=== PATIENT | female | born 1970 | race Hispanic/Latino ===

== ENCOUNTER 2016-06-26 02:15 | Emergency (ER) | payer MEDICAID ==
[2016-06-26 02:26] VITALS: BP 149/97
[2016-06-26 03:26] LABS: Alanine Aminotransferase 12 units/L (7-56); Albumin 3.9 g/dL (3.9-5); Albumin/Globulin Ratio 1.6 %; Alkaline Phosphatase 64 units/L (35-129); BUN/Creatinine Ratio 31.66; Bilirubin,Total 0.2 mg/dL (0.1-1.2); Blood Urea Nitrogen 19 mg/dL (7-17); Carbon Dioxide 24 mmol/L (22-30); Glucose 89 mg/dL (65-100); Lipase 36 units/L (13-60); Total Protein 6.4 g/dL (6.3-8.2)
[2016-06-26 03:27] LABS: Anion Gap 19 mmol/L; Chloride 97.9 mmol/L (98-107); Potassium 3.9 mmol/L (3.6-5.0); Sodium 137 mmol/L (137-145)
[2016-06-26 03:35] LABS: Basophils % (Auto) 0.8 % (0.0-1.8); Eosinophils % (Auto) 3.4 % (0.0-4.3); Hematocrit 37.1 % (30.3-42.9); Hemoglobin 11.9 gm/dl (10.1-14.3); Mean Corpuscular HGB Conc 32 % (30-34); Mean Corpuscular Hemoglobin 28 pg (28-32); Mean Corpuscular Volume 87 fl (79-97); Platelet Count 266 K/mm3 (140-440); Red Blood Count 4.26 M/mm3 (3.65-5.03); Red Cell Distribution Width 14.9 % (13.2-15.2); White Blood Count 7.2 K/mm3 (4.5-11.0)
[2016-06-26 05:05] LABS: Bilirubin,Urine NEG (Negative); Blood,Urine MOD (Negative); Ketones,Urine TR mg/dL (Negative); Leukocyte Esterase,Urine SM (Negative); Mucus,Urine FEW /HPF; Nitrite,Urine NEG (Negative); Protein,Urine <15 mg/dL mg/dL (Negative); Urobilinogen,Urine < 2.0 mg/dL (<2.0)
--- NOTE | 2016-06-28 18:25 | ED Elopement Review ---
ED Pt Elopement review - Results review Lab results: Laboratory Tests 06/26/16 06/26/16 06/26/16 02:54 02:54 Unknown WBC 7.2 RBC 4.26 Hgb 11.9 Hct 37.1 MCV 87 MCH 28 MCHC 32 RDW 14.9 Plt Count 266 Lymph % (Auto) 36.1 H [place] % (Auto) 9.3 H Eos % (Auto) 3.4 Baso % (Auto) 0.8 Lymph # 2.6 [place] # 0.7 Eos # 0.2 Baso # 0.1 Seg Neutrophils % 50.4 Seg Neutrophils # 3.6 Sodium 137 Potassium 3.9 Chloride 97.9 L Carbon Dioxide 24 Anion Gap 19 BUN 19 H Creatinine 0.6 L Estimated GFR > 60 BUN/Creatinine Ratio 31.66 Glucose 89 Calcium 9.0 Total Bilirubin 0.2 AST 17 ALT 12 Alkaline Phosphatase 64 Total Protein 6.4 Albumin 3.9 Albumin/Globulin Ratio 1.6 Lipase 36 Urine Color Yellow Urine Turbidity Clear Urine pH 6.0 Ur Specific [place] 1.024 Urine Protein <15 mg/dl Urine Glucose (UA) Neg Urine Ketones Tr Urine Blood Mod Urine Nitrite Neg Ur Reducing Substances Not Reportable Urine Bilirubin Neg Urine Ictotest Not Reportable Urine Urobilinogen < 2.0 Ur Leukocyte Esterase Sm Urine WBC (Auto) 3.0 Urine RBC (Auto) 3.0 U Epithel Cells (Auto) 2.0 Urine Mucus Few Urine HCG, Qual Negative - Call Back decision Pt Call Back Decision: Pt to F/U with PMD
== END 2016-06-26 02:55 | disposition left against medical advice (07) ==
LOC: ED 02:15
DX: R10.9 Unspecified abdominal pain (principal); Z53.21 Procedure and treatment not carried out due to patient leaving prior to being seen by health care provider
CPT/HCPCS: 36415; 80053; 81001; 81025; 83690; 85025

== ENCOUNTER 2016-07-16 07:53 | Emergency (ER) | payer MEDICAID ==
[2016-07-16 08:58] LABS: Basophils % (Auto) 0.7 % (0.0-1.8); Eosinophils % (Auto) 1.4 % (0.0-4.3); Hematocrit 37.3 % (30.3-42.9); Hemoglobin 12.1 gm/dl (10.1-14.3); Mean Corpuscular HGB Conc 32 % (30-34); Mean Corpuscular Hemoglobin 28 pg (28-32); Mean Corpuscular Volume 86 fl (79-97); Platelet Count 258 K/mm3 (140-440); Red Blood Count 4.36 M/mm3 (3.65-5.03); Red Cell Distribution Width 14.8 % (13.2-15.2); White Blood Count 6.5 K/mm3 (4.5-11.0)
[2016-07-16 09:05] LABS: Alanine Aminotransferase 11 units/L (7-56); Albumin/Globulin Ratio 1.6 %; Alkaline Phosphatase 59 units/L (35-129); Anion Gap 18 mmol/L; Bilirubin,Total 0.3 mg/dL (0.1-1.2); Blood Urea Nitrogen 11 mg/dL (7-17); Calcium 9.2 mg/dL (8.4-10.2); Carbon Dioxide 24 mmol/L (22-30); Chloride 101.4 mmol/L (98-107); Glucose 94 mg/dL (65-100); Lipase 23 units/L (13-60); Sodium 139 mmol/L (137-145); Total Protein 6.5 g/dL (6.3-8.2)
[2016-07-16] MEDS ORDERED: NACL 0.9% 1000 ML 1,000 ML IV ONE (13:57)
[2016-07-16] MEDS ORDERED: ZOFRAN IV ONE (14:38)
[2016-07-16] MEDS ORDERED: MORPHINE IV ONE (14:38)
[2016-07-16 14:40] LABS: Bilirubin,Urine NEG (Negative); Blood,Urine NEG (Negative); Ketones,Urine 20 mg/dL (Negative); Leukocyte Esterase,Urine TR (Negative); Nitrite,Urine NEG (Negative); Protein,Urine <15 mg/dL mg/dL (Negative); RBC,Urine < 1.0 /HPF (0.0-6.0); Urobilinogen,Urine < 2.0 mg/dL (<2.0); WBC,Urine < 1.0 /HPF (0.0-6.0)
--- NOTE | 2016-07-16 14:43 | Emergency Department Report ---
ED Abdominal Pain HPI - General Chief Complaint: Abdominal Pain Stated Complaint: SEVERE ABD PAIN Time Seen by Provider: 07/16/16 13:55 Source: patient Mode of arrival: Wheelchair Limitations: No Limitations - History of Present Illness Initial Comments: 46-year-old female presents to the emergency department complaining of abdominal pain. Patient reports onset of pain at approximately 10:30 last night. Patient states the pain was initially intermittent abdomen, but has migrated to her right lower quadrant. Patient describes the sensation of a knife being stabbed into her abdomen. The pain does not radiate. Pain has progressively gotten worse since onset. She reports associated nausea, but has not vomited. Patient states she had gastric bypass surgery 03/18/2016. She states she called her surgeon and was told to come emergency department. There are no further complaints. MD Complaint: abdominal pain -: Sudden, During the night Time: 22:30 Location: periumbilical Radiation: none Migration to: RLQ Severity: severe Severity scale (0 -10): 10 Quality: other (stabbing) Consistency: constant Improves With: nothing Worsens With: nothing Associated Symptoms: nausea - Related Data Home Medications Medication Instructions Recorded Confirmed Last Taken Ascorbic Acid [Vitamin C] 1,000 mg PO 02/22/16 Unknown Biotin 10,000 mcg PO DAILY 02/22/16 02/22/16 03/17/16 Calcium Citrate/Vitamin D3 [Gnp 1 each PO DAILY 02/22/16 02/22/16 03/17/16 Calcium Citrate-Vit D3 Tab] Cyclobenzaprine [Flexeril] 10 mg PO TID PRN 02/22/16 03/18/16 03/17/16 Gabapentin [Gabapentin] 600 mg PO DAILY 02/22/16 03/18/16 1 Week Ago Magnesium Oxide/Mag Aa Chelate 600 mg PO DAILY 02/22/16 02/22/16 03/17/16 [Magnesium 300 mg Capsule] Plummer-3 Fatty Acids/Fish Oil [Cvs 1 each PO DAILY 02/22/16 02/22/16 03/17/16 Fish Oil 1,200 mg Softgel] Vit No.112/Folic Acid 1 mg PO DAILY 02/22/16 02/22/16 03/17/16 [Prenate Chewable Tablet] Vitamin B Complex & Vit C No.4 150 mg PO DAILY 02/22/16 02/22/16 03/17/16 [Super B Complex] buPROPion XL [Wellbutrin Xl] 150 mg PO BID 02/22/16 02/22/16 03/18/16 07:30 Previous Rx's Medication Instructions Recorded Last Taken Type Carvedilol [Coreg] 6.25 mg PO BID #60 tablet 04/07/15 03/18/16 07:30 Rx Lisinopril [Zestril TAB] 10 mg PO QDAY #30 tablet 04/07/15 03/18/16 07:30 Rx Simvastatin [Zocor TAB] 20 mg PO QHS #30 tablet 04/07/15 03/17/16 Rx oxyCODONE /ACETAMINOPHEN [Percocet 1 - 2 tab PO Q6H PRN #30 tablet 04/07/15 Rx 5/325 mg] HYDROcodone/APAP 5-325 [Estelline 1 each PO Q6HR PRN #20 tablet 07/16/16 Unknown Rx 5/325] traMADol [Ultram] 50 mg PO Q6HR PRN #20 tablet 07/16/16 Unknown Rx Allergies Allergy/AdvReac Type Severity Reaction Status Date / Time aspirin Allergy Bleeding Verified 04/05/15 10:32 ED Review of Systems ROS: Stated complaint: SEVERE ABD PAIN Other details as noted in HPI Comment: All other systems reviewed and negative Gastrointestinal: abdominal pain, nausea ED Past Medical Hx - Past Medical History Previous Medical History?: Yes Hx Hypertension: Yes (1YR) Hx Diabetes: No Hx GERD: Yes Hx Arthritis: Yes (SPINE AND KNEES) Additional medical history: Suspected sleep apnea;. Spontaneous pneumothorax ( early ) - Surgical History Past Surgical History?: Yes Hx Cholecystectomy: Yes Additional Surgical History: , right knee surgery; rectal abscess / GASTRIC BYPASS - Family History Family history: no significant - Social History Smoking Status: Never Smoker Substance Use Type: None - Medications Home Medications: Home Medications Medication Instructions Recorded Confirmed Last Taken Type Carvedilol [Coreg] 6.25 mg PO BID #60 tablet 04/07/15 02/22/16 03/18/16 07:30 Rx Lisinopril [Zestril TAB] 10 mg PO QDAY #30 tablet 04/07/15 03/18/16 03/18/16 07: 30 Rx Simvastatin [Zocor TAB] 20 mg PO QHS #30 tablet 04/07/15 02/22/16 03/17/16 Rx oxyCODONE /ACETAMINOPHEN [Percocet 1 - 2 tab PO Q6H PRN #30 tablet 04/07/1503/17/16 Rx 5/325 mg] Ascorbic Acid [Vitamin C] 1,000 mg PO 02/22/16 Unknown History Biotin 10,000 mcg PO DAILY 02/22/16 02/22/16 03/17/16 History Calcium Citrate/Vitamin D3 [Gnp 1 each PO DAILY 02/22/16 02/22/16 03/17/16 History Calcium Citrate-Vit D3 Tab] Cyclobenzaprine [Flexeril] 10 mg PO TID PRN 02/22/16 03/18/16 03/17/16 History Gabapentin [Gabapentin] 600 mg PO DAILY 02/22/16 03/18/16 1 Week Ago History Magnesium Oxide/Mag Aa Chelate 600 mg PO DAILY 02/22/16 02/22/16 03/17/16 History [Magnesium 300 mg Capsule] Plummer-3 Fatty Acids/Fish Oil [Cvs 1 each PO DAILY 02/22/16 02/22/16 03/17/16 History Fish Oil 1,200 mg Softgel] Vit No.112/Folic Acid 1 mg PO DAILY 02/22/16 02/22/16 03/17/16 History [Prenate Chewable Tablet] Vitamin B Complex & Vit C No.4 150 mg PO DAILY 02/22/16 02/22/16 03/17/16 History [Super B Complex] buPROPion XL [Wellbutrin Xl] 150 mg PO BID 02/22/16 02/22/16 03/18/16 07:30 History HYDROcodone/APAP 5-325 [[place]ell[place] 1 each PO Q6HR PRN #20 tablet 07/16/16 Unknown Rx 5/325] traMADol [Ultram] 50 mg PO Q6HR PRN #20 tablet 07/16/16 Unknown Rx ED Physical Exam - General Limitations: No Limitations General appearance: alert, in distress (mild distress secondary to pain) - Head Head exam: Present: atraumatic, normocephalic - Eye Eye exam: Present: normal appearance, PERRL, EOMI - ENT ENT exam: Present: normal exam, normal orophraynx, mucous membranes moist - Neck Neck exam: Present: normal inspection, full ROM. Absent: tenderness - Respiratory Respiratory exam: Present: normal lung sounds bilaterally. Absent: respiratory distress - Cardiovascular Cardiovascular Exam: Present: regular rate, normal rhythm, normal heart sounds - GI/Abdominal GI/Abdominal exam: Present: soft, tenderness (moderate right lower quadrant tenderness to palpation), normal bowel sounds. Absent: distended, guarding, rebound - Extremities Exam Extremities exam: Present: normal inspection, full ROM. Absent: tenderness - Back Exam Back exam: Present: normal inspection, full ROM. Absent: tenderness - Neurological Exam Neurological exam: Present: alert, oriented X3. Absent: motor sensory deficit - Skin Skin exam: Present: warm, dry, intact ED Course Vital Signs 07/16/16 07/16/16 07/16/16 08:23 13:34 14:38 Temperature 98.4 F 97.7 F Pulse Rate 83 99 H 101 H Respiratory 20 17 18 Rate Blood Pressure 126/89 133/84 Blood Pressure 140/85 [Left] O2 Sat by Pulse 100 100 99 Oximetry ED Medical Decision Making - Lab Data Result diagrams: 07/16/16 08:33 07/16/16 08:33 - Radiology Data Radiology results: report reviewed, image reviewed interpreted by me: Abdominal films reveal a moderate amount of stool in the right colon with nonspecific bowel gas pattern. There is no evidence of obstruction. CT of abdomen and pelvis revealed a small amount of free fluid in the cul-de- sac and in the right adnexa. The appendix is normal. There are no other acute findings. - Medical Decision Making Lab and imaging results reviewed and discussed with the patient. Patient reports feeling better following IV medication. Patient's symptoms are likely secondary to a ruptured ovarian cyst considering the description of pain and the CT findings. Patient will be discharged home at this time on oral pain medication to follow-up with her primary care physician. - Differential Diagnosis abdominal pain, bowel infection, appendicitis, UTI Critical care attestation.: If time is entered above; I have spent that time in minutes in the direct care of this critically ill patient, excluding procedure time. ED Disposition Clinical Impression: Ruptured ovarian cyst Disposition: DISCHARGED TO HOME OR SELFCARE Is pt being admited?: No Condition: Stable Instructions: Ovarian Cyst (ED) Prescriptions: HYDROcodone/APAP 5-325 [[place]ell[place] 5/325] 1 each PO Q6HR PRN #20 tablet PRN Reason: Pain traMADol [Ultram] 50 mg PO Q6HR PRN #20 tablet PRN Reason: Pain Referrals: PAMELA KULKARNI DO [Primary Care Provider] - 3-5 Days Time of Disposition: 16:15
[2016-07-16] MEDS ORDERED: NACL ONE (15:08)
--- NOTE | 2016-07-16 15:18 | XRay Report ---
Abdominal series with PA chest x-ray. Findings: The bowel gas pattern is unremarkable. No free air is seen on the upright view. There is a moderate volume of stool throughout the colon, especially in the right colon. Minimal small bowel gas is noted. Surgical clips are seen in the right upper quadrant. No mass effect, organomegaly, or significant calcifications are seen. The chest x-ray is normal. Impression: No significant findings.
[2016-07-16] MEDS ORDERED: DILAUDID ONE (15:37)
[2016-07-16] MEDS ORDERED: DILAUDID IV ONE (15:41)
--- NOTE | 2016-07-16 16:02 | Cat Scan Report ---
CT of the abdomen and pelvis with IV contrast. History: Right lower quadrant pain. Findings: There is a sharply circumscribed hypodensity in the anterior aspect of the left lobe of the liver adjacent to the falciform ligament. This measures 2.7 cm in diameter. A subcentimeter rounded hypodensity is seen in the medial aspect of the right lobe of the liver. No additional focal abnormalities are seen. Post gastric bypass changes are noted. The spleen and pancreas are unremarkable. The kidneys are normal. Surgical clips are noted in the right upper quadrant. The appendix is normal. There is a small volume of free fluid in the cul-de-sac. A 1 cm cyst is seen in the left adnexa. Minimal free fluid is seen in the right adnexa. Impression: 1. Free fluid is seen within the cul-de-sac and right adnexa. A 1 cm cyst is seen in the left adnexa. 2. 2 hepatic hypodense lesions are nonspecific but probably benign. 3. Post gastric bypass and postcholecystectomy changes.
[2016-07-16 16:58] VITALS: BP 100/79
== END 2016-07-16 17:00 | disposition home or self-care (01) ==
LOC: ED 07:53
DX: N83.299 Other ovarian cyst, unspecified side (principal); I10 Essential (primary) hypertension; K21.9 Gastro-esophageal reflux disease without esophagitis; M19.90 Unspecified osteoarthritis, unspecified site; Z90.49 Acquired absence of other specified parts of digestive tract
CPT/HCPCS: 36415; 74022; 74177; 80053; 81001; 81025; 83690; 85025; 96361; 96374; 96375; 99284; J1170; J2270; J2405; J7030; Q9967

== ENCOUNTER 2017-03-09 15:02 | Emergency (ER) | payer MEDICAID ==
[2017-03-09 15:10] VITALS: BP 138/80
--- NOTE | 2017-03-09 15:47 | Emergency Department Report ---
Chief Complaint: Abdominal Pain Stated Complaint: R SIDE PAIN Time Seen by Provider: 03/09/17 15:44 - HPI History of Present Illness: This is a 46-year-old female well-nourished well-developed in no acute distress. Patient is here complaining of right lower quadrant pain since this morning. She reports that she has some nausea but no vomiting. Denies any diarrhea. Pain is 10 out of 10 and achy. Worse with movement and palpation. The lower rest. She denies any fever or chills. Denies any urinary burning frequency or urgency. Patient has a history of arthritis, asthma congestive heart failure, GERD, hypertension, possible sleep apnea, spontaneous pneumothorax, gastric bypass. She has her gallbladder removed. - ROS Review of Systems: All systems are negative unless stated in HPI above - Exam Vital Signs: Vital Signs 03/09/17 15:06 Temperature 98.3 F Pulse Rate 119 H Respiratory 17 Rate Blood Pressure 138/80 O2 Sat by Pulse 99 Oximetry Physical Exam: Gen.: This is a 46-year-old female well-nourished well-developed and nontoxic in appearance Abdomen: Tender to palpate the right lower quadrant, positive guarding. Normal bowel sounds. No distention or rigidity. MSE screening note: Focused history and physical exam performed. Due to findings the following was ordered: ED Medical Decision Making - Medical Decision Making MDM: Patient screened by provider in triage area. Appropriate protocol initiated and patient to be seen in main ED by ED Disposition for MSE Condition: Stable Instructions: Abdominal Pain (ED)
[2017-03-09 16:53] LABS: Eosinophils % (Auto) 4.5 % (0.0-4.3); Hematocrit 38.1 % (30.3-42.9); Hemoglobin 12.3 gm/dl (10.1-14.3); Mean Corpuscular HGB Conc 32 % (30-34); Mean Corpuscular Hemoglobin 29 pg (28-32); Mean Corpuscular Volume 89 fl (79-97); Platelet Count 310 K/mm3 (140-440); Red Blood Count 4.26 M/mm3 (3.65-5.03); Red Cell Distribution Width 15.7 % (13.2-15.2); White Blood Count 6.9 K/mm3 (4.5-11.0)
[2017-03-09 16:58] LABS: Bilirubin,Urine NEG (Negative); Blood,Urine MOD (Negative); Ketones,Urine NEG (Negative); Leukocyte Esterase,Urine NEG (Negative); Nitrite,Urine NEG (Negative); Protein,Urine <15 mg/dL mg/dL (Negative); Urobilinogen,Urine < 2.0 mg/dL (<2.0)
[2017-03-09 17:01] LABS: Alanine Aminotransferase 20 units/L (7-56); Albumin 4.1 g/dL (3.9-5); Albumin/Globulin Ratio 1.6 %; Alkaline Phosphatase 43 units/L (35-129); Anion Gap 18 mmol/L; BUN/Creatinine Ratio 32; Bilirubin,Total < 0.20 mg/dL (0.1-1.2); Blood Urea Nitrogen 16 mg/dL (7-17); Calcium 8.9 mg/dL (8.4-10.2); Carbon Dioxide 24 mmol/L (22-30); Chloride 102.1 mmol/L (98-107); Glucose 84 mg/dL (65-100); Lipase 28 units/L (13-60); Potassium 3.9 mmol/L (3.6-5.0); Sodium 140 mmol/L (137-145); Total Protein 6.6 g/dL (6.3-8.2)
== END 2017-03-09 23:30 | disposition left against medical advice (07) ==
LOC: ED 15:02
DX: R10.31 Right lower quadrant pain (principal); Z53.21 Procedure and treatment not carried out due to patient leaving prior to being seen by health care provider
CPT/HCPCS: 36415; 80053; 81001; 83690; 84703; 85025

== ENCOUNTER 2019-12-24 16:32 | Observation (INO) | payer MEDICAID, OTHER ==
[2019-12-24] MEDS ORDERED: LORazepam 2 MG/ML VIAL IV ONE (18:56)
[2019-12-24] MEDS ORDERED: LACTATED RINGERS 500 ML IV ONE (18:56)
--- NOTE | 2019-12-24 18:58 | Emergency Department Report ---
ED General Adult HPI - General Chief complaint: Altered Mental Status Stated complaint: ALTERED MH PUI?: Yes Time Seen by Provider: 12/24/19 17:44 Source: patient, EMS, RN notes reviewed Mode of arrival: Ambulatory Limitations: Other (Patient does not recall exactly what happened) - History of Present Illness Initial comments: The patient was evaluated in the emergency department for symptoms described in the history of present illness. He/she was evaluated in the context of the global COVID-19 pandemic, which necessitated consideration that the patient might be at risk for infection with the virus that causes COVID-19. Institutional protocols and algorithms that pertain to the evaluation of patients at risk for COVID-19 are in a state of rapid change based on information released by regulatory bodies including the CDC and federal and state organizations. These policies and algorithms were followed during the patient's care in the emergency department. Please note that these policies, procedures and recommendations changed on a rapid basis. Primary care doctor: Dr. Barboru Patient is a 49-year-old female. She is not known to myself previously. The patient has a history of morbid obesity, status post bariatric surgery. She has a subsequent history of narcotic dependence, and is currently been on methadone for the past 3 weeks. She has a history of anemia, and is not entirely compliant with appropriate bariatric surgery vitamin supplementation. The patient is brought to the hospital by emergency medical services for episode of confusion. The patient states "I do not know what happened." The patient thinks that she might have passed out or lost consciousness. She does not know for sure. She denies headache, neck pain, chest pain, has mild cramping abdominal pain which is constant, has chronic constipation, denies DVT and pulmonary embolism risk factors, and is not homicidal or suicidal. She is fairly compliant with her other medications, and is very anxious about what happened. As far she can recall, this is never happened to her in the past. She denies hematemesis, bright red blood per rectum. -: Sudden Severity scale (0 -10): 0 Consistency: now resolved Improves with: none Worsens with: none - Related Data Home Medications Medication Instructions Recorded Confirmed Last Taken Ascorbic Acid [Vitamin C] 1,000 mg PO 02/22/16 Unknown Biotin 10,000 mcg PO DAILY 02/22/16 02/22/16 03/17/16 Calcium Citrate/Vitamin D3 [Gnp 1 each PO DAILY 02/22/16 02/22/16 03/17/16 Calcium Citrate-Vit D3 Tab] Cyclobenzaprine [Flexeril] 10 mg PO TID PRN 02/22/16 03/18/16 03/17/16 Gabapentin 600 mg PO DAILY 02/22/16 03/18/16 1 Week Ago ~03/11/16 Magnesium Oxide/Magnesium 600 mg PO DAILY 02/22/16 02/22/16 03/17/16 [Magnesium 300 mg Capsule] Leblanc-3 Fatty Acids/Fish Oil [Cvs 1 each PO DAILY 02/22/16 02/22/16 03/17/16 Fish Oil 1,200 mg Softgel] Vit No.112/Folate No6 1 mg PO DAILY 02/22/16 02/22/16 03/17/16 [Prenate Chewable Tablet] Vitamin B Complex Vit C No.4 150 mg PO DAILY 02/22/16 02/22/16 03/17/16 [Super B Complex] buPROPion XL [Wellbutrin Xl] 150 mg PO BID 02/22/16 02/22/16 03/18/16 07:30 Previous Rx's Medication Instructions Recorded Last Taken Type Simvastatin (Nf) [Zocor TAB] 20 mg PO QHS #30 tablet 04/07/15 03/17/16 Rx carvediloL [Coreg] 6.25 mg PO BID #60 tablet 04/07/15 03/18/16 07:30 Rx lisinopriL [Zestril TAB] 10 mg PO QDAY #30 tablet 04/07/15 03/18/16 07:30 Rx oxyCODONE /ACETAMINOPHEN [Percocet 1 - 2 tab PO Q6H PRN #30 tablet 04/07/15 03/17/16 Rx 5/325 mg] HYDROcodone/APAP 5-325 [Petal[place] 1 each PO Q6HR PRN #20 tablet 07/16/16 Unknown Rx 5/325] traMADoL [Ultram] 50 mg PO Q6HR PRN #20 tablet 07/16/16 Unknown Rx Allergies Allergy/AdvReac Type Severity Reaction Status Date / Time aspirin Allergy Bleeding Verified 04/05/15 10:32 ED Review of Systems ROS: Stated complaint: ALTERED MH Other details as noted in HPI Constitutional: denies: fever Eyes: denies: eye discharge ENT: denies: congestion Respiratory: denies: cough Cardiovascular: palpitations, syncope. denies: chest pain Gastrointestinal: constipation. denies: abdominal pain, nausea, vomiting, diarr hea Genitourinary: denies: dysuria Musculoskeletal: denies: back pain Neurological: confusion Psychiatric: denies: homicidal thoughts, suicidal thoughts ED Past Medical Hx - Past Medical History Previous Medical History?: Yes Hx Hypertension: Yes (1YR) Hx Diabetes: No Hx GERD: Yes Hx Arthritis: Yes (SPINE AND KNEES) Additional medical history: Suspected sleep apnea;. Spontaneous pneumothorax (early ). Gastric ByPass - Surgical History Past Surgical History?: Yes Hx Cholecystectomy: Yes Additional Surgical History: , right knee surgery; rectal abscess / GASTRIC BYPASS - Social History Smoking Status: Current Every Day Smoker Substance Use Type: Methamphetamines - Medications Home Medications: Home Medications Medication Instructions Recorded Confirmed Last Taken Type Simvastatin (Nf) [Zocor TAB] 20 mg PO QHS #30 tablet 04/07/15 02/22/16 03/17/16 Rx carvediloL [Coreg] 6.25 mg PO BID #60 tablet 04/07/15 02/22/16 03/18/16 07:30 Rx lisinopriL [Zestril TAB] 10 mg PO QDAY #30 tablet 04/07/15 03/18/16 03/18/16 07:30 Rx oxyCODONE /ACETAMINOPHEN [Percocet 1 - 2 tab PO Q6H PRN #30 tablet 04/07/15 02/22/16 03/17/16 Rx 5/325 mg] Ascorbic Acid [Vitamin C] 1,000 mg PO 02/22/16 Unknown History Biotin 10,000 mcg PO DAILY 02/22/16 02/22/16 03/17/16 History Calcium Citrate/Vitamin D3 [Gnp 1 each PO DAILY 02/22/16 02/22/16 03/17/16 History Calcium Citrate-Vit D3 Tab] Cyclobenzaprine [Flexeril] 10 mg PO TID PRN 02/22/16 03/18/16 03/17/16 History Gabapentin 600 mg PO DAILY 02/22/16 03/18/16 1 Week Ago History ~03/11/16 Magnesium Oxide/Magnesium 600 mg PO DAILY 02/22/16 02/22/16 03/17/16 History [Magnesium 300 mg Capsule] Leblanc-3 Fatty Acids/Fish Oil [Cvs 1 each PO DAILY 02/22/16 02/22/16 03/17/16 History Fish Oil 1,200 mg Softgel] Vit No.112/Folate No6 1 mg PO DAILY 02/22/16 02/22/16 03/17/16 History [Prenate Chewable Tablet] Vitamin B Complex Vit C No.4 150 mg PO DAILY 02/22/16 02/22/16 03/17/16 History [Super B Complex] buPROPion XL [Wellbutrin Xl] 150 mg PO BID 02/22/16 02/22/16 03/18/16 07:30 History HYDROcodone/APAP 5-325 [[place] 1 each PO Q6HR PRN #20 tablet 07/16/16 Unknown Rx 5/325] traMADoL [Ultram] 50 mg PO Q6HR PRN #20 tablet 07/16/16 Unknown Rx ED Physical Exam - General Limitations: No Limitations General appearance: alert, anxious - Head Head exam: Present: atraumatic, normocephalic - Eye Eye exam: Present: normal appearance, PERRL, EOMI, other (Visual acuity intact to finger counting, color perception, reading at a close distance). Absent: nystagmus - ENT ENT exam: Present: normal exam, normal orophraynx, mucous membranes moist, normal external ear exam - Neck Neck exam: Present: normal inspection, full ROM. Absent: tenderness, meningismus - Respiratory Respiratory exam: Present: normal lung sounds bilaterally. Absent: respiratory distress, wheezes, rales, rhonchi, stridor, decreased breath sounds - Cardiovascular Cardiovascular Exam: Present: normal rhythm, tachycardia, normal heart sounds. Absent: systolic murmur, diastolic murmur, rubs, gallop - GI/Abdominal GI/Abdominal exam: Present: soft. Absent: distended, tenderness, guarding, rebound, rigid, pulsatile mass - Extremities Exam Extremities exam: Present: normal inspection, full ROM, other (2+ pulses noted in the bilateral upper and lower extremities. There is no palpable cord. negative Homans sign. Muscular compartments are soft. The pelvis is stable.). Absent: pedal edema, calf tenderness - Back Exam Back exam: Present: normal inspection, full ROM. Absent: tenderness, CVA tenderness (R), muscle spasm, paraspinal tenderness, vertebral tenderness - Neurological Exam Neurological exam: Present: alert, oriented X3, normal gait, other (No facial droop. Tongue midline. Extraocular movements intact bilaterally. Facial sensation intact to light touch in V1, V2, V3 distribution bilaterally. 5 and a 5 strength in 4 extremities. Sensation intact to light touch in 4 extremities.). Absent: motor sensory deficit - Psychiatric Psychiatric exam: Present: anxious. Absent: homicidal ideation, suicidal ideation - Skin Skin exam: Present: warm, dry, intact, normal color. Absent: rash ED Course Vital Signs 12/24/19 12/24/19 12/24/19 17:40 17:45 17:46 Temperature 98.7 F Pulse Rate 103 H 105 H 95 H Respiratory 20 18 17 Rate Blood Pressure 140/84 140/84 Blood Pressure [Left] O2 Sat by Pulse 100 100 Oximetry 12/24/19 12/24/19 12/24/19 17:49 18:00 18:16 Temperature Pulse Rate 105 H 91 H 91 H Respiratory 18 15 17 Rate Blood Pressure 125/69 126/71 Blood Pressure 140/84 [Left] O2 Sat by Pulse 100 99 87 Oximetry 12/24/19 12/24/19 12/24/19 18:30 18:45 19:01 Temperature Pulse Rate 97 H 96 H 92 H Respiratory 12 17 15 Rate Blood Pressure 122/71 141/75 Blood Pressure [Left] O2 Sat by Pulse 99 100 98 Oximetry 12/24/19 12/24/19 12/24/19 19:19 19:31 19:45 Temperature Pulse Rate 108 H 95 H 97 H Respiratory 17 15 14 Rate Blood Pressure 141/75 135/75 144/77 Blood Pressure [Left] O2 Sat by Pulse 99 98 99 Oximetry 12/24/19 12/24/19 20:08 20:15 Temperature Pulse Rate 99 H 98 H Respiratory 13 14 Rate Blood Pressure 134/73 Blood Pressure [Left] O2 Sat by Pulse 99 98 Oximetry - Reevaluation(s) Reevaluation #1: 12/24/19 20:25 Differential diagnosis, including but not limited to: Orthostasis, vagal event, structural cardiac disease, pulmonary embolism, acute coronary syndrome, anemia, electrolyte derangement, intracranial injury Assessment and plan: 49-year-old female, who is currently tachycardic and anxious, not tachypneic or hypoxic, who denies DVT and pulmonary embolism risk factors, who is currently alert, oriented, clinically sober, walks with a steady gait, with a GCS of 15, NIH score of 0. Laboratory studies show microcytic anemia, which does not require packed red blood cell transfusion, and mild hypokalemia. Given unclear etiology as the patient's initial presentation, we have recommended admission to the medical service for observation, and further evaluation of presumed syncope. We will give her Ativan for her anxiety and some fluids, and we will replete her potassium. X-ray of the chest was unremarkable, CT scan of the brain was also unremarkable. A d-dimer was sent, results are pending at this time. Discussed plan of care with the patient, who verbalized understanding, and is amenable to this plan of care. Reevaluation #2: 12/24/19 21:21 Dr Jose R Geronimo to admit D Dimer negative ED Medical Decision Making - Lab Data Result diagrams: 12/24/19 19:04 12/24/19 19:04 Vital Signs 12/24/19 12/24/19 12/24/19 17:40 17:45 17:46 Temperature 98.7 F Pulse Rate 103 H 105 H 95 H Respiratory 20 18 17 Rate Blood Pressure 140/84 140/84 Blood Pressure [Left] O2 Sat by Pulse 100 100 Oximetry 12/24/19 12/24/19 12/24/19 17:49 18:00 18:16 Temperature Pulse Rate 105 H 91 H 91 H Respiratory 18 15 17 Rate Blood Pressure 125/69 126/71 Blood Pressure 140/84 [Left] O2 Sat by Pulse 100 99 87 Oximetry 12/24/19 12/24/19 12/24/19 18:30 18:45 19:01 Temperature Pulse Rate 97 H 96 H 92 H Respiratory 12 17 15 Rate Blood Pressure 122/71 141/75 Blood Pressure [Left] O2 Sat by Pulse 99 100 98 Oximetry 12/24/19 12/24/19 12/24/19 19:19 19:31 19:45 Temperature Pulse Rate 108 H 95 H 97 H Respiratory 17 15 14 Rate Blood Pressure 141/75 135/75 144/77 Blood Pressure [Left] O2 Sat by Pulse 99 98 99 Oximetry 12/24/19 12/24/19 20:08 20:15 Temperature Pulse Rate 99 H 98 H Respiratory 13 14 Rate Blood Pressure 134/73 Blood Pressure [Left] O2 Sat by Pulse 99 98 Oximetry Lab Results 12/24/19 12/24/19 12/24/19 Range/Units 19:04 19:04 19:04 WBC 4.9 (4.5-11.0) K/mm3 RBC 4.65 (3.65-5.03) M/mm3 Hgb 8.9 L (10.1-14.3) gm/dl Hct 28.8 L (30.3-42.9) % MCV 62 L (79-97) fl MCH 19 L (28-32) pg MCHC 31 (30-34) % RDW 18.3 H (13.2-15.2) % Plt Count 390 (140-440) K/mm3 Lymph % (Auto) 15.8 (13.4-35.0) % [place] % (Auto) 5.2 (0.0-7.3) % Eos % (Auto) 0.4 (0.0-4.3) % Baso % (Auto) 0.3 (0.0-1.8) % Lymph # 0.8 L (1.2-5.4) K/mm3 [place] # 0.3 (0.0-0.8) K/mm3 Eos # 0.0 (0.0-0.4) K/mm3 Baso # 0.0 (0.0-0.1) K/mm3 Seg Neutrophils % 78.3 H (40.0-70.0) % Seg Neutrophils # 3.9 (1.8-7.7) K/mm3 PT 13.1 (12.2-14.9) Sec. INR 0.98 (0.87-1.13) Sodium 139 (137-145) mmol/L Potassium 3.0 L (3.6-5.0) mmol/L Chloride 97.8 L (98-107) mmol/L Carbon Dioxide 26 (22-30) mmol/L Anion Gap 18 mmol/L BUN 8 (7-17) mg/dL Creatinine 0.6 (0.6-1.2) mg/dL Estimated GFR > 60 ml/min BUN/Creatinine Ratio 13 % Glucose 96 (65-100) mg/dL Calcium 9.5 (8.4-10.2) mg/dL Magnesium 2.00 (1.7-2.3) mg/dL Total Bilirubin 0.20 (0.1-1.2) mg/dL AST 22 (5-40) units/L ALT 16 (7-56) units/L Alkaline Phosphatase 63 (35-129) units/L Total Creatine Kinase 122 (30-135) units/L Troponin T < 0.010 (0.00-0.029) ng/mL Total Protein 6.5 (6.3-8.2) g/dL Albumin 4.0 (3.9-5) g/dL Albumin/Globulin Ratio 1.6 % Salicylates (2.8-20.0) mg/dL Acetaminophen (10.0-30.0) ug/mL Plasma/Serum Alcohol (0-0.07) % Blood Type 12/24/19 12/24/19 12/24/19 Range/Units 19:04 19:04 19:04 WBC (4.5-11.0) K/mm3 RBC (3.65-5.03) M/mm3 Hgb (10.1-14.3) gm/dl Hct (30.3-42.9) % MCV (79-97) fl MCH (28-32) pg MCHC (30-34) % RDW (13.2-15.2) % Plt Count (140-440) K/mm3 Lymph % (Auto) (13.4-35.0) % [place] % (Auto) (0.0-7.3) % Eos % (Auto) (0.0-4.3) % Baso % (Auto) (0.0-1.8) % Lymph # (1.2-5.4) K/mm3 [place] # (0.0-0.8) K/mm3 Eos # (0.0-0.4) K/mm3 Baso # (0.0-0.1) K/mm3 Seg Neutrophils % (40.0-70.0) % Seg Neutrophils # (1.8-7.7) K/mm3 PT (12.2-14.9) Sec. INR (0.87-1.13) Sodium (137-145) mmol/L Potassium (3.6-5.0) mmol/L Chloride (98-107) mmol/L Carbon Dioxide (22-30) mmol/L Anion Gap mmol/L BUN (7-17) mg/dL Creatinine (0.6-1.2) mg/dL Estimated GFR ml/min BUN/Creatinine Ratio % Glucose (65-100) mg/dL Calcium (8.4-10.2) mg/dL Magnesium (1.7-2.3) mg/dL Total Bilirubin (0.1-1.2) mg/dL AST (5-40) units/L ALT (7-56) units/L Alkaline Phosphatase (35-129) units/L Total Creatine Kinase (30-135) units/L Troponin T (0.00-0.029) ng/mL Total Protein (6.3-8.2) g/dL Albumin (3.9-5) g/dL Albumin/Globulin Ratio % Salicylates < 0.3 L (2.8-20.0) mg/dL Acetaminophen 5.0 L (10.0-30.0) ug/mL Plasma/Serum Alcohol < 0.01 (0-0.07) % Blood Type 12/24/19 Range/Units 19:04 WBC (4.5-11.0) K/mm3 RBC (3.65-5.03) M/mm3 Hgb (10.1-14.3) gm/dl Hct (30.3-42.9) % MCV (79-97) fl MCH (28-32) pg MCHC (30-34) % RDW (13.2-15.2) % Plt Count (140-440) K/mm3 Lymph % (Auto) (13.4-35.0) % [place] % (Auto) (0.0-7.3) % Eos % (Auto) (0.0-4.3) % Baso % (Auto) (0.0-1.8) % Lymph # (1.2-5.4) K/mm3 [place] # (0.0-0.8) K/mm3 Eos # (0.0-0.4) K/mm3 Baso # (0.0-0.1) K/mm3 Seg Neutrophils % (40.0-70.0) % Seg Neutrophils # (1.8-7.7) K/mm3 PT (12.2-14.9) Sec. INR (0.87-1.13) Sodium (137-145) mmol/L Potassium (3.6-5.0) mmol/L Chloride (98-107) mmol/L Carbon Dioxide (22-30) mmol/L Anion Gap mmol/L BUN (7-17) mg/dL Creatinine (0.6-1.2) mg/dL Estimated GFR ml/min BUN/Creatinine Ratio % Glucose (65-100) mg/dL Calcium (8.4-10.2) mg/dL Magnesium (1.7-2.3) mg/dL Total Bilirubin (0.1-1.2) mg/dL AST (5-40) units/L ALT (7-56) units/L Alkaline Phosphatase (35-129) units/L Total Creatine Kinase (30-135) units/L Troponin T (0.00-0.029) ng/mL Total Protein (6.3-8.2) g/dL Albumin (3.9-5) g/dL Albumin/Globulin Ratio % Salicylates (2.8-20.0) mg/dL Acetaminophen (10.0-30.0) ug/mL Plasma/Serum Alcohol (0-0.07) % Blood Type O POSITIVE - EKG Data -: EKG Interpreted by Ak EKG shows normal: sinus rhythm Rate: normal - EKG Data When compared to previous EKG there are: previous EKG unavailable 12/24/19 20:27 Sinus rhythm, 90 bpm, normal axis, QTC 493 ms, low voltage in the lateral leads, the EKG is abnormal, the EKG is not a STEMI. - Radiology Data Radiology results: report reviewed, image reviewed Noncontrast CT scan of the brain is negative for acute findings. X-ray of the chest is negative for acute findings. Critical care attestation.: If time is entered above; I have spent that time in minutes in the direct care of this critically ill patient, excluding procedure time. ED Disposition Clinical Impression: Syncope, Hypokalemia, Anemia Disposition: OP ADMIT IP TO THIS HOSP Is pt being admited?: Yes Does the pt Need Aspirin: No Condition: Good Instructions: Syncope (ED) Referrals: PRIMARY CARE, [Primary Care Provider] - 3-5 Days
[2019-12-24 19:53] LABS: Basophils % (Auto) 0.3 % (0.0-1.8); Eosinophils % (Auto) 0.4 % (0.0-4.3); Hematocrit 28.8 % (30.3-42.9); Hemoglobin 8.9 gm/dl (10.1-14.3); Lymphocytes # (Auto) 0.8 K/mm3 (1.2-5.4); Lymphocytes % (Auto) 15.8 % (13.4-35.0); Mean Corpuscular HGB Conc 31 % (30-34); Monocytes # (Auto) 0.3 K/mm3 (0.0-0.8); Monocytes % (Auto) 5.2 % (0.0-7.3); Platelet Count 390 K/mm3 (140-440); Red Blood Count 4.65 M/mm3 (3.65-5.03); Red Cell Distribution Width 18.3 % (13.2-15.2)
[2019-12-24 19:54] LABS: Alanine Aminotransferase 16 units/L (7-56); Blood Urea Nitrogen 8 mg/dL (7-17); Calcium 9.5 mg/dL (8.4-10.2); Hemolysis Index 2
--- NOTE | 2019-12-24 19:56 | Cat Scan Report ---
CT head/brain wo con INDICATION: Syncope, altered mental status. TECHNIQUE: Routine CT head without contrast. All CT scans at this location are performed using CT dos e reduction for ALARA by means of automated exposure control. COMPARISON: None. FINDINGS: BRAIN / INTRACRANIAL CONTENTS: No acute hemorrhage, mass effect, midline shift, or hydrocephalus. No appreciable acute large territorial or lacunar infarct. No chronic infarct or focal atrophy. Normal b rain volume and ventricular/sulcal size for age. ORBITS: No significant abnormality of visualized orbits. SINUSES / MASTOIDS: No significant abnormality of visualized sinuses and mastoid air cells. ADDITIONAL FINDINGS: None. IMPRESSION: 1. No acute intracranial abnormality. Signer Name: Raffi Diaz MD Signed: 12/24/2019 7:52 PM Workstation Name: [id number]
[2019-12-24 19:59] LABS: BUN/Creatinine Ratio 13
[2019-12-24 20:03] LABS: INR 0.98 (0.87-1.13)
[2019-12-24 20:07] LABS: Mean Corpuscular Volume 62 fl (79-97)
--- NOTE | 2019-12-24 20:13 | XRay Report ---
CHEST 1 VIEW 12/24/2019 7:03 PM INDICATION / CLINICAL INFORMATION: syncope tachycardia hx of ams. COMPARISON: None available. FINDINGS: SUPPORT DEVICES: None. HEART / MEDIASTINUM: No significant abnormality. LUNGS / PLEURA: No significant pulmonary or pleural abnormality. No pneumothorax. ADDITIONAL FINDINGS: No significant additional findings. IMPRESSION: 1. No acute findings. Signer Name: Jluis Zelaya MD Signed: 12/24/2019 8:08 PM Workstation Name: [id number]
[2019-12-24] MEDS ORDERED: POTASSIUM CHLORIDE ER 20 MEQ TAB PO ONE (20:16)
[2019-12-24] MEDS ORDERED: MULTIVITAMINS ,THERAPEUTIC TAB PO ONE (20:49)
[2019-12-24] MEDS ORDERED: CYANOCOBALAMIN (VIT B-12) 100 MCG TAB PO STA (20:49)
[2019-12-24] MEDS ORDERED: FERROUS SULFATE 325 MG TAB PO ONE (20:49)
[2019-12-24] MEDS ORDERED: LORazepam 2 MG/ML VIAL ONE (21:02)
[2019-12-24] MEDS: POTASSIUM CHLORIDE 10 MEQ 10 MEQ/100 ML BAG IV SCH ×2 (21:22→23:36)
[2019-12-24] MEDS ORDERED: ACETAMINOPHEN 325 MG TAB PO PRN (22:56)
[2019-12-24] MEDS ORDERED: ONDANSETRON 4 MG/2 ML INJ IV PRN (22:57)
[2019-12-24] MEDS ORDERED: POTASSIUM CHLORIDE 10 MEQ 10 MEQ/100 ML BAG IV ONE (23:36)
[2019-12-25 05:31] LABS: Creatine Kinase MB 1.5 ng/mL (0.0-4.0)
[2019-12-25 07:08] LABS: Creatine Kinase MB 1.4 ng/mL (0.0-4.0)
[2019-12-25 07:18] LABS: Blood Urea Nitrogen 7 mg/dL (7-17); Hemolysis Index 3
--- NOTE | 2019-12-25 07:25 | History and Physical Report ---
History of Present Illness Date of examination: 12/24/19 Date of admission: 12/24/19 21:21 Chief complaint: 49 year old female presenting with confusion and possible syncopal attack per patient, she was not sure if she really passed out. There is no historyn of fever, chills , nausea or vomintig. Patient also denied history of shortness of breath , chest pain or bodyaches. Past History Past Medical History: arthritis, GERD, hypertension, other (CARDIOMYOPATHY, OBESITYSLEEP APNEA, PNEUMOTHORAX) Past Surgical History: Other (GASTRIC BYPASS, . RIGHT KNEE SUIGERY) Medications and Allergies Allergies Allergy/AdvReac Type Severity Reaction Status Date / Time aspirin Allergy Bleeding Verified 04/05/15 10:32 Home Medications Medication Instructions Recorded Confirmed Last Taken Type Simvastatin (Nf) [Zocor TAB] 20 mg PO QHS #30 tablet 04/07/15 02/22/16 2 Days Ago Rx ~12/23/19 carvediloL [Coreg] 6.25 mg PO BID #60 tablet 04/07/15 02/22/16 2 Days Ago Rx ~12/23/19 lisinopriL [Zestril TAB] 10 mg PO QDAY #30 tablet 04/07/15 03/18/16 2 Days Ago Rx ~12/23/19 oxyCODONE /ACETAMINOPHEN [Percocet 1 - 2 tab PO Q6H PRN #30 tablet 04/07/15 02/22/16 2 Days Ago Rx 5/325 mg] ~12/23/19 Ascorbic Acid [Vitamin C] 1,000 mg PO 02/22/16 2 Days Ago History ~12/23/19 Biotin 10,000 mcg PO DAILY 02/22/16 02/22/16 2 Days Ago History ~12/23/19 Calcium Citrate/Vitamin D3 [Gnp 1 each PO DAILY 02/22/16 02/22/16 2 Days Ago History Calcium Citrate-Vit D3 Tab] ~12/23/19 Cyclobenzaprine [Flexeril] 10 mg PO TID PRN 02/22/16 03/18/16 2 Days Ago History ~12/23/19 Gabapentin 600 mg PO DAILY 02/22/16 03/18/16 2 Days Ago History ~12/23/19 Magnesium Oxide/Magnesium 600 mg PO DAILY 02/22/16 02/22/16 2 Days Ago History [Magnesium 300 mg Capsule] ~12/23/19 [place]-3 Fatty Acids/Fish Oil [Cvs 1 each PO DAILY 02/22/16 02/22/16 2 Days Ago History Fish Oil 1,200 mg Softgel] ~12/23/19 Vit No.112/Folate No6 1 mg PO DAILY 02/22/16 02/22/16 2 Days Ago History [Prenate Chewable Tablet] ~12/23/19 Vitamin B Complex Vit C No.4 150 mg PO DAILY 02/22/16 02/22/16 2 Days Ago History [Super B Complex] ~12/23/19 buPROPion XL [Wellbutrin Xl] 150 mg PO BID 02/22/16 02/22/16 2 Days Ago History ~12/23/19 HYDROcodone/APAP 5-325 [[place] 1 each PO Q6HR PRN #20 tablet 07/16/16 2 Days Ago Rx 5/325] ~12/23/19 traMADoL [Ultram] 50 mg PO Q6HR PRN #20 tablet 07/16/16 2 Days Ago Rx ~12/23/19 Active Meds: Active Medications Acetaminophen (Tylenol) 650 mg PO Q4H PRN PRN Reason: Headache Heparin Sodium (Porcine) (Heparin) 5,000 unit SUB-Q Q12HR LATOYA Ondansetron HCl (Zofran) 4 mg IV Q8H PRN PRN Reason: Nausea And Vomiting Review of Systems Constitutional: no weight loss, no weight gain, no fever, no chills, no sweats, no weakness, no malaise, no lethargy Eyes: bilateral: other (NO BILATERAL EYE SYMPTOMS) Ears, nose, mouth and throat: no ear pain, no ear discharge, no tinnitis, no decreased hearing, no nose pain, no nasal congestion, no nasal discharge, no sinus pressure, no mouth pain, no dysphagia, no hoarseness, no sore throat Breasts: deferred, no normal, no change in shape, no swelling, no mass, no discharge, no pain, no skin changes, no , no tender Cardiovascular: syncope, no chest pain, no orthopnea, no palpitations, no rapid/irregular heart beat, no lightheadedness, no shortness of breath, no high blood pressure Respiratory: no cough, no congestion, no wheezing Gastrointestinal: no abdominal pain, no nausea, no vomiting, no diarrhea, no constipation Rectal: no pain Musculoskeletal: no neck stiffness, no neck pain, no shooting arm pain, no arm numbness/tingling, no low back pain, no shooting leg pain, no morning stiffness, no muscle weakness, no muscle cramps Integumentary: no rash, no pruritis, no redness, no sores, no wounds, no jaundice, no boils, no lesions, no darkening of skin, no depigmentation, no acne, no dryness Neurological: change in mentation, confusion, no paralysis, no weakness, no parathesias, no numbness, no tingling, no seizures, no syncope, no tremors, no ataxia, no headaches, no migraines, no convulsions, no aphasia, no change in speech Psychiatric: no anxiety, no insomnia, no hypersomnia, no change in appetite, no change in libido, no suicidal ideation Endocrine: no cold intolerance, no heat intolerance, no polyphagia, no excessive thirst, no polydipsia, no polyuria, no nocturia, no excessive sweating, no thyroid mass, no palpatations, no high blood sugars Hematologic/Lymphatic: no easy bruising, no easy bleeding, no lymphadenopathy, no lymphedema Exam - Constitutional Vitals: Temp Pulse Resp BP Pulse Ox 98.7 F 92 H 18 109/68 95 12/25/19 04:37 12/25/19 04:37 12/25/19 04:37 12/25/19 04:37 12/25/19 04:37 General appearance: Present: no acute distress - EENT Eyes: Present: PERRL, EOM intact ENT: clear oral mucosa, dentition normal - Neck Neck: Present: supple, normal ROM. Absent: enlarged thyroid - Respiratory Respiratory effort: normal - Cardiovascular Rhythm: regular Heart Sounds: Present: S1 & S2. Absent: gallop, systolic murmur, diastolic murmur, click - Extremities Extremities: no ischemia, No edema Peripheral Pulses: within normal limits - Abdominal General gastrointestinal: Present: soft, non-tender, non-distended. Absent: tender, distended, rigid, hepatomegaly, splenomegaly Female genitourinary: Present: deferred - Rectal Rectal Exam: deferred - Integumentary Integumentary: Present: clear, warm, dry. Absent: jaundice, normal turgor - Musculoskeletal Musculoskeletal: strength equal bilaterally, right sided weakness - Psychiatric Psychiatric: appropriate mood/affect - Neurologic Neurologic: CNII-XII intact HEART Score - HEART Score Risk factors: 1-2 risk factors Troponin: Troponin T < 0.010 ng/mL (0.00-0.029) 12/25/19 05:48 Troponin: < normal limit - Critical Actions Critical Actions: 0-3 pts:0.9-1.7%risk of adverse cardiac event.Candidate for discharge Results - Labs CBC & Chem 7: 12/24/19 19:04 12/24/19 19:04 Labs: Laboratory Last Values WBC 4.9 K/mm3 (4.5-11.0) 12/24/19 19:04 RBC 4.65 M/mm3 (3.65-5.03) 12/24/19 19:04 Hgb 8.9 gm/dl (10.1-14.3) L 12/24/19 19:04 Hct 28.8 % (30.3-42.9) L 12/24/19 19:04 MCV 62 fl (79-97) L 12/24/19 19:04 MCH 19 pg (28-32) L 12/24/19 19:04 MCHC 31 % (30-34) 12/24/19 19:04 RDW 18.3 % (13.2-15.2) H 12/24/19 19:04 Plt Count 390 K/mm3 (140-440) 12/24/19 19:04 Lymph % (Auto) 15.8 % (13.4-35.0) 12/24/19 19:04 [place] % (Auto) 5.2 % (0.0-7.3) 12/24/19 19:04 Eos % (Auto) 0.4 % (0.0-4.3) 12/24/19 19:04 Baso % (Auto) 0.3 % (0.0-1.8) 12/24/19 19:04 Lymph # 0.8 K/mm3 (1.2-5.4) L 12/24/19 19:04 [place] # 0.3 K/mm3 (0.0-0.8) 12/24/19 19:04 Eos # 0.0 K/mm3 (0.0-0.4) 12/24/19 19:04 Baso # 0.0 K/mm3 (0.0-0.1) 12/24/19 19:04 Seg Neutrophils % 78.3 % (40.0-70.0) H 12/24/19 19:04 Seg Neutrophils # 3.9 K/mm3 (1.8-7.7) 12/24/19 19:04 PT 13.1 Sec. (12.2-14.9) 12/24/19 19:04 INR 0.98 (0.87-1.13) 12/24/19 19:04 D-Dimer 152.65 ng/mlDDU (0-234) 12/24/19 19:04 Sodium 139 mmol/L (137-145) 12/24/19 19:04 Potassium 3.0 mmol/L (3.6-5.0) L 12/24/19 19:04 Chloride 97.8 mmol/L (98-107) L 12/24/19 19:04 Carbon Dioxide 26 mmol/L (22-30) 12/24/19 19:04 Anion Gap 18 mmol/L 12/24/19 19:04 BUN 8 mg/dL (7-17) 12/24/19 19:04 Creatinine 0.6 mg/dL (0.6-1.2) 12/24/19 19:04 Estimated GFR > 60 ml/min 12/24/19 19:04 BUN/Creatinine Ratio 13 % 12/24/19 19:04 Glucose 96 mg/dL (65-100) 12/24/19 19:04 Calcium 9.5 mg/dL (8.4-10.2) 12/24/19 19:04 Magnesium 2.00 mg/dL (1.7-2.3) 12/24/19 19:04 Total Bilirubin 0.20 mg/dL (0.1-1.2) 12/24/19 19:04 AST 22 units/L (5-40) 12/24/19 19:04 ALT 16 units/L (7-56) 12/24/19 19:04 Alkaline Phosphatase 63 units/L (35-129) 12/24/19 19:04 Total Creatine Kinase 80 units/L (30-135) 12/25/19 04:12 CK-MB (CK-2) 1.5 ng/mL (0.0-4.0) 12/25/19 04:12 CK-MB (CK-2) Rel Index 1.8 (0-4) 12/25/19 04:12 Troponin T < 0.010 ng/mL (0.00-0.029) 12/25/19 05:48 Total Protein 6.5 g/dL (6.3-8.2) 12/24/19 19:04 Albumin 4.0 g/dL (3.9-5) 12/24/19 19:04 Albumin/Globulin Ratio 1.6 % 12/24/19 19:04 TSH 1.270 mlU/mL (0.270-4.200) 12/24/19 19:04 HCG, Quant 0.643 mIU/mL (0-4) 12/24/19 19:04 Salicylates < 0.3 mg/dL (2.8-20.0) L 12/24/19 19:04 Acetaminophen 5.0 ug/mL (10.0-30.0) L 12/24/19 19:04 Plasma/Serum Alcohol < 0.01 % (0-0.07) 12/24/19 19:04 Blood Type O POSITIVE 12/24/19 19:04 Antibody Screen Negative 12/24/19 19:04 Haley/IV: Voiding Method Toilet IV Catheter Type [Right Peripheral IV Antecubital] Assessment and Plan - Patient Problems (1) Altered mental status Current Visit: Yes Status: Acute Plan to address problem: 1. OXYGEN BY NASAL CANULAR (2) Hypokalemia Current Visit: Yes Status: Acute Plan to address problem: KCL REPLACEMENT (3) Syncope Current Visit: Yes Status: Acute Plan to address problem: 1. BILATERAL CAROTID DOPPLER ULTRASOUND 2. 2- D ECHOCARDIOGRAM 3. SERIAL CARDIAC ENZYME
[2019-12-25] MEDS: HEPARIN 5,000 UNIT/1 ML VIAL SUB-Q SCH ×3 (07:27→22:16)
[2019-12-25 07:37] LABS: BUN/Creatinine Ratio 10
[2019-12-25 09:35] LABS: Bacteria,Urine 2+ /HPF (Negative); Bilirubin,Urine NEG (Negative); Blood,Urine NEG (Negative); Color,Urine Straw (Yellow); Mucus,Urine FEW /HPF; Protein,Urine <15 mg/dL mg/dL (Negative); Urobilinogen,Urine < 2.0 mg/dL (<2.0); WBC,Urine < 1.0 /HPF (0.0-6.0)
[2019-12-25] MEDS: hydrOXYzine PAMOATE 25 MG CAP PO PRN ×2 (17:49→23:15)
--- NOTE | 2019-12-25 20:26 | Progress Note ---
Assessment and Plan Assessment and plan: --Altered mental status/metabolic encephalopathy Current Visit: Yes Status: Acute Plan to address problem: Secondary to hypoglycemia , hypokalemia As well as syncope resolved, patient is alert awake oriented x3 Patient is ambulating without support (2) Hypokalemia Current Visit: Yes Status: Acute Plan to address problem: KCL REPLACEMENT (3) Syncope Current Visit: Yes Status: Acute Plan to address problem: Echocardiogram; 50 to 55% ejection fraction carotid Doppler; no hemodynamically significant stenosis Less than 50% stenosis bilateral CT head without contrast; no acute abnormality no acute abnormality Closely monitor the patient and adjust management as needed Plan of care reviewed with the patient and her nurse Possible discharge home tomorrow if stable History Interval history: I have seen and examined the patient Patient's chart and medications reviewed admitted with altered level of consciousness and Syncope, no new episodes of syncope since admission Syncope work-up is in progress Vital signs noted Hospitalist Physical - Constitutional Vitals: Temp Pulse Resp BP Pulse Ox 99.1 F 86 16 118/73 98 12/25/19 20:07 12/25/19 20:07 12/25/19 20:07 12/25/19 20:07 12/25/19 20:07 General appearance: Present: no acute distress, well-nourished - EENT Eyes: Present: PERRL, EOM intact - Neck Neck: Present: supple, normal ROM - Respiratory Respiratory effort: normal Respiratory: bilateral: diminished, negative: rales, rhonchi, wheezing - Cardiovascular Rhythm: regular Heart Sounds: Present: S1 & S2 - Extremities Extremities: no ischemia, No edema - Abdominal General gastrointestinal: soft, non-tender, non-distended, normal bowel sounds - Integumentary Integumentary: Present: clear, warm - Psychiatric Psychiatric: appropriate mood/affect, cooperative - Neurologic Neurologic: moves all extremities HEART Score - HEART Score Risk factors: 1-2 risk factors Troponin: Troponin T < 0.010 ng/mL (0.00-0.029) 12/25/19 05:48 Troponin: < normal limit - Critical Actions Critical Actions: 0-3 pts:0.9-1.7%risk of adverse cardiac event.Candidate for discharge Results - Labs CBC & Chem 7: 12/24/19 19:04 12/25/19 05:48 Labs: Laboratory Last Values WBC 4.9 K/mm3 (4.5-11.0) 12/24/19 19:04 RBC 4.65 M/mm3 (3.65-5.03) 12/24/19 19:04 Hgb 8.9 gm/dl (10.1-14.3) L 12/24/19 19:04 Hct 28.8 % (30.3-42.9) L 12/24/19 19:04 MCV 62 fl (79-97) L 12/24/19 19:04 MCH 19 pg (28-32) L 12/24/19 19:04 MCHC 31 % (30-34) 12/24/19 19:04 RDW 18.3 % (13.2-15.2) H 12/24/19 19:04 Plt Count 390 K/mm3 (140-440) 12/24/19 19:04 Lymph % (Auto) 15.8 % (13.4-35.0) 12/24/19 19:04 [place] % (Auto) 5.2 % (0.0-7.3) 12/24/19 19:04 Eos % (Auto) 0.4 % (0.0-4.3) 12/24/19 19:04 Baso % (Auto) 0.3 % (0.0-1.8) 12/24/19 19:04 Lymph # 0.8 K/mm3 (1.2-5.4) L 12/24/19 19:04 [place] # 0.3 K/mm3 (0.0-0.8) 12/24/19 19:04 Eos # 0.0 K/mm3 (0.0-0.4) 12/24/19 19:04 Baso # 0.0 K/mm3 (0.0-0.1) 12/24/19 19:04 Seg Neutrophils % 78.3 % (40.0-70.0) H 12/24/19 19:04 Seg Neutrophils # 3.9 K/mm3 (1.8-7.7) 12/24/19 19:04 PT 13.1 Sec. (12.2-14.9) 12/24/19 19:04 INR 0.98 (0.87-1.13) 12/24/19 19:04 D-Dimer 152.65 ng/mlDDU (0-234) 12/24/19 19:04 Sodium 140 mmol/L (137-145) 12/25/19 05:48 Potassium 3.2 mmol/L (3.6-5.0) L 12/25/19 05:48 Chloride 100.4 mmol/L (98-107) 12/25/19 05:48 Carbon Dioxide 25 mmol/L (22-30) 12/25/19 05:48 Anion Gap 18 mmol/L 12/25/19 05:48 BUN 7 mg/dL (7-17) 12/25/19 05:48 Creatinine 0.7 mg/dL (0.6-1.2) 12/25/19 05:48 Estimated GFR > 60 ml/min 12/25/19 05:48 BUN/Creatinine Ratio 10 % 12/25/19 05:48 Glucose 106 mg/dL (65-100) H 12/25/19 05:48 Calcium 9.0 mg/dL (8.4-10.2) 12/25/19 05:48 Magnesium 2.00 mg/dL (1.7-2.3) 12/24/19 19:04 Total Bilirubin 0.20 mg/dL (0.1-1.2) 12/24/19 19:04 AST 22 units/L (5-40) 12/24/19 19:04 ALT 16 units/L (7-56) 12/24/19 19:04 Alkaline Phosphatase 63 units/L (35-129) 12/24/19 19:04 Total Creatine Kinase 73 units/L (30-135) 12/25/19 05:48 CK-MB (CK-2) 1.4 ng/mL (0.0-4.0) 12/25/19 05:48 CK-MB (CK-2) Rel Index 1.9 (0-4) 12/25/19 05:48 Troponin T < 0.010 ng/mL (0.00-0.029) 12/25/19 05:48 Total Protein 6.5 g/dL (6.3-8.2) 12/24/19 19:04 Albumin 4.0 g/dL (3.9-5) 12/24/19 19:04 Albumin/Globulin Ratio 1.6 % 12/24/19 19:04 TSH 1.270 mlU/mL (0.270-4.200) 12/24/19 19:04 HCG, Quant 0.643 mIU/mL (0-4) 12/24/19 19:04 Urine Color Straw (Yellow) 12/25/19 09:00 Urine Turbidity Clear (Clear) 12/25/19 09:00 Urine pH 7.0 (5.0-7.0) 12/25/19 09:00 Ur Specific [place] 1.003 (1.003-1.030) 12/25/19 09:00 Urine Protein <15 mg/dl mg/dL (Negative) 12/25/19 09:00 Urine Glucose (UA) Neg mg/dL (Negative) 12/25/19 09:00 Urine Ketones Tr mg/dL (Negative) 12/25/19 09:00 Urine Blood Neg (Negative) 12/25/19 09:00 Urine Nitrite Neg (Negative) 12/25/19 09:00 Urine Bilirubin Neg (Negative) 12/25/19 09:00 Urine Urobilinogen < 2.0 mg/dL (<2.0) 12/25/19 09:00 Ur Leukocyte Esterase Neg (Negative) 12/25/19 09:00 Urine WBC (Auto) < 1.0 /HPF (0.0-6.0) 12/25/19 09:00 Urine RBC (Auto) 1.0 /HPF (0.0-6.0) 12/25/19 09:00 U Epithel Cells (Auto) < 1.0 /HPF (0-13.0) 12/25/19 09:00 Urine Bacteria (Auto) 2+ /HPF (Negative) 12/25/19 09:00 Urine Mucus Few /HPF 12/25/19 09:00 Salicylates < 0.3 mg/dL (2.8-20.0) L 12/24/19 19:04 Acetaminophen 5.0 ug/mL (10.0-30.0) L 12/24/19 19:04 Plasma/Serum Alcohol < 0.01 % (0-0.07) 12/24/19 19:04 Blood Type O POSITIVE 12/24/19 19:04 Antibody Screen Negative 12/24/19 19:04 Haley/IV: Voiding Method Toilet IV Catheter Type [Right Peripheral IV Antecubital] Active Medications - Current Medications Current Medications: Generic Name Dose Route Start Last Admin Trade Name Freq PRN Reason Stop Dose Admin Acetaminophen 650 mg 12/24/19 22:56 Tylenol PO Q4H PRN Headache Heparin Sodium (Porcine) 5,000 unit 12/24/19 23:00 12/25/19 10:41 Heparin SUB-Q 5,000 unit Q12HR LATOYA Administration Hydroxyzine Pamoate 25 mg 12/25/19 14:04 12/25/19 17:49 Vistaril PO 25 mg Q6H PRN Administration Anxiety
[2019-12-26] MEDS: hydrOXYzine PAMOATE 25 MG CAP PO PRN (10:05)
[2019-12-26] MEDS: HEPARIN 5,000 UNIT/1 ML VIAL SUB-Q SCH ×2 (10:05→22:55)
[2019-12-26] MEDS ORDERED: METHADONE 10 MG TAB PO ONE (12:38)
--- NOTE | 2019-12-26 13:00 | Vascular Lab Report ---
"DUPLEX DOPPLER ULTRASOUND CAROTID, BILATERAL INDICATION: SYNCOPE. FINDINGS: RIGHT CAROTID: No significant atherosclerotic plaque. Right CCA velocity: 76 cm/sec. Right ICA peak systolic velocity: 116 cm/sec. ICA/CCA PSV Ratio: 1.5. Right Vertebral Artery: Antegrade flow. LEFT CAROTID: No significant atherosclerotic plaque. Left CCA velocity: 81 cm/sec. Left ICA peak systolic velocity: 115 cm/sec. ICA/CCA PSV Ratio: 1.4. Left Vertebral Artery: Antegrade flow. IMPRESSION: 1. Right Internal Carotid Artery: Less than 50% diameter stenosis. 2. Left Internal Carotid Artery: Less than 50% diameter stenosis. Velocity criteria are extrapolated from diameter data as defined by the Society of Radiologists in Ul trasound Consensus Conference, Radiology 2003; 229;340-346. Degree of Stenosis (%) || ICA PSV (cm/sec) || Plaque estimate (%) || ICA/CCA PSV Ratio Normal <125 None <2.0 <50 <125 <50 <2.0 50-69 125-230 50 2.0-4.0 70 but less than 100 >230 50 >4.0 Near occlusion High, low, or none visible variable Total occlusion None visible; no lumen N/A Signer Name: Raffi Diaz MD Signed: 12/26/2019 12:55 PM Workstation Name: [id number]"
[2019-12-26] MEDS: INSULIN LISPRO 100 UNIT/ML VIAL 3 mL SUB-Q SCH ×3 (16:17→22:58)
[2019-12-26] MEDS ORDERED: LORazepam 0.5 MG TAB PO SCH (22:00)
[2019-12-27] MEDS: INSULIN LISPRO 100 UNIT/ML VIAL 3 mL SUB-Q SCH ×2 (09:07→13:54)
[2019-12-27] MEDS: HEPARIN 5,000 UNIT/1 ML VIAL SUB-Q SCH (09:40)
[2019-12-27] MEDS ORDERED: METHADONE 10 MG TAB PO SCH ×2 (10:00)
--- NOTE | 2019-12-27 10:01 | Discharge Summary ---
Providers - Providers Date of Admission: 12/24/19 21:21 Date of discharge: 12/27/19 Attending physician: MARLY RAY Primary care physician: CATHY ROB MD Hospitalization Condition: Good Disposition: DC-01 TO HOME OR SELFCARE Time spent for discharge: 32 min Core Measure Documentation - Palliative Care Palliative Care/ Comfort Measures: Not Applicable - Core Measures Any of the following diagnoses?: none Exam - Constitutional Vitals: Temp Pulse Resp BP Pulse Ox 98.3 F 74 16 115/68 99 12/27/19 03:32 12/27/19 08:01 12/27/19 03:32 12/27/19 08:01 12/27/19 08:01 General appearance: Present: no acute distress, well-nourished - EENT Eyes: Present: PERRL, EOM intact - Neck Neck: Present: supple, normal ROM - Respiratory Respiratory effort: normal Respiratory: bilateral: diminished, negative: rales, rhonchi, wheezing - Cardiovascular Rhythm: regular Heart Sounds: Present: S1 & S2 - Extremities Extremities: no ischemia, No edema - Abdominal General gastrointestinal: Present: soft, non-tender, non-distended, normal bowel sounds - Integumentary Integumentary: Present: clear, warm - Musculoskeletal Musculoskeletal: strength equal bilaterally - Psychiatric Psychiatric: appropriate mood/affect, cooperative - Neurologic Neurologic: moves all extremities Plan Activity: advance as tolerated, fall precautions Diet: regular Additional Instructions: If you have worsening symptoms contact MD and go to emergency room. Fall precautions. You have many home medications, check with primary care physicians before resuming them. Advised to take regular meals, plenty of fluids, nutrition supplements like boost, Ensure +2-3 times a day Follow up with: PRIMARY CARE, [Primary Care Provider] - 3-5 Days
[2019-12-27 13:18] VITALS: BP 131/78
== END 2019-12-27 13:00 | disposition home or self-care (01) ==
LOC: ED 16:32 → 4A 21:21
PROVIDERS: ADMIT Internal Medicine; ATTEND Internal Medicine
DX: R41.82 Altered mental status, unspecified (principal); E87.6 Hypokalemia; R55 Syncope and collapse; D64.9 Anemia, unspecified; I10 Essential (primary) hypertension; K21.9 Gastro-esophageal reflux disease without esophagitis; M19.90 Unspecified osteoarthritis, unspecified site; I42.9 Cardiomyopathy, unspecified; E66.9 Obesity, unspecified; E87.2 Acidosis; G47.30 Sleep apnea, unspecified; Z98.84 Bariatric surgery status; Z98.891 History of uterine scar from previous surgery; Z98.890 Other specified postprocedural states; Z79.899 Other long term (current) drug therapy
CPT/HCPCS: 36415; 70450; 71045; 80048; 80053; 81001; 82550; 82553; 82962; 83735; 84132; 84443; 84484; 84702; 85025; 85379; 85610; 86850; 86900; 86901; 93005; 93306; 93880; 96365; 96366; 96372; 96375; 99285; G0378; J1644; J2060; J3480; J7120; 80320; G0480; Q0177